=== PATIENT | female | born 1955 | race Caucasian/White ===

== ENCOUNTER → 2023-10-15 09:05 | Outpatient (REF) | payer MEDICARE, OTHER, SELFPAY | LOC: HWWDC 09:05 | PROVIDERS: ATTENDING PHYSICIAN Obstetrics & Gynecology; FAMILY PHYSICIAN Family Medicine | DX: Z12.31 Encounter for screening mammogram for malignant neoplasm of breast (principal) | CPT/HCPCS: 77063; 77067 ==

== ENCOUNTER → 2024-02-06 14:00 | Outpatient (REF) | payer MEDICARE, OTHER, SELFPAY | LOC: HWRAD 14:00 | PROVIDERS: ATTENDING PHYSICIAN Physician Assistant Medical; FAMILY PHYSICIAN Family Medicine | DX: R05.3 Chronic cough (principal) | CPT/HCPCS: 71046 ==

== ENCOUNTER 2024-02-27 07:10 | Emergency (ER) | payer MEDICARE, OTHER, SELFPAY ==
[2024-02-27] VITALS (7 sets, daily range): BP systolic 135–164; BP diastolic 62–87; BMI 23.9
--- NOTE | 2024-02-27 07:58 | ED.GENMED ---
History of Present Illness
General
Chief Complaint: Chest Pain
Source: patient
Exam Limitations: none
Time Seen by Provider: 02/27/24 07:41
History of Present Illness
History of Present Illness:
68-year-old female with history of hypertension presents with onset of chest discomfort this morning. She was laying in bed between 4 AM and 5 AM and developed a pressure on the left side of her chest that radiated into her neck and notes that her
bottom teeth hurt. The pain is not pleuritic. No recent travel. She does not smoke. No significant family history of cardiovascular disease. She is not diabetic. She notes a slight amount of pressure that is persistent at this time. No
abdominal pain. No nausea. She does note she had a COVID-vaccine 4 days ago. She is due to travel to [place] in 2 days.
Past History
Past History
ED Past Medical History: HTN, Hyperthyroidism and Other
ED Past Surgical History:
Social History
Tobacco: Non-smoker
Alcohol: None
Personal:
Living: with family
Employment: Employed
Family History
Family History: Hypertension; Negative CAD or Sudden
Phy Exam
Physical Exam
Physical Exam:
General: Well-appearing female no acute respiratory distress
HEENT: Normocephalic neck is supple
Heart: Regular rate and rhythm no murmurs
Lungs: Clear no wheeze
Extremities: No cyanosis or edema
Skin: Warm no rash abdomen soft nontender nondistended
Scores
Heart Score for Chest Pain Patients
STEMI patient?: No
History: Slightly or Non-Suspicious
ECG: Normal
Age: >/= 65 years
Risk Factors: 1 or 2 Risk Factors
Troponin: </= Normal Limit
Heart Score for Chest Pain Patients: 3
Heart Score Risk: 2.5% MACE over next 6 weeks
Course
Orders/Labs/Results
Orders:
Orders
02/27/24 07:10
Electrocardiogram (*1) Urgent
Reason for Study: Chest Pain
EKG- Treatment ONCE
02/27/24 07:59
Complete Blood Count/With Diff Urgent
Comprehensive Metabolic Panel Urgent
D-Dimer Urgent
Troponin I Urgent
02/27/24 09:27
CT Chest Pe Study Urgent
Comment:
Reason For Exam: chest pain
02/27/24 11:14
Troponin I Urgent
02/27/24 11:19
Electrocardiogram (*1) Urgent
Reason for Study: Chest Pain
EKG- Treatment ONCE
Abnormal Lab Results
02/27/24
07:59
WBC 4.6 L 10^3/uL
(4.8-10.8)
RBC 4.19 L 10^6/uL
(4.20-5.40)
Hgb 11.8 L g/dL
(12.0-16.0)
Hct 35.3 L %
(37.0-47.0)
Absolute Monos (auto) 0.7 H 10^3/uL
(0.1-0.6)
Monocytes % 14.8 H %
(1.7-9.3)
D-Dimer 0.75 H ug/mlFEU
(0.00-0.50)
BUN 22 H mg/dl
(7-17)
02/27/24 07:59
02/27/24 07:59
Vital Signs
Initial and Last Documented VS:
Initial Vital Signs
Temp Pulse Resp BP Pulse Ox
97.9 F 74 18 164/87 99
02/27/24 07:15 02/27/24 07:15 02/27/24 07:15 02/27/24 07:15 02/27/24 07:15
Last Documented Vital Signs
Temp Pulse Resp BP Pulse Ox
97.8 F 66 9 140/71 97
02/27/24 08:01 02/27/24 12:15 02/27/24 12:15 02/27/24 12:00 02/27/24 12:00
MDM/Problems Addressed
Differential Diagnosis Includes:
Chest pain. Consider ACS versus chest wall strain versus pneumothorax versus PE
Patient describes pressure from her chest rating to her jaw. EKG shows sinus rhythm without ischemic changes. Will check troponin and D-dimer. Vital signs currently stable.
Chronic conditions affecting care: HTN
Acute Exacerbation and/or Progression of Chronic Illness:
This is an acute problem
*Critical Care Note
Total Time (30-74mins, 75-104mins- exclusive of procedures): Not Applicable
Update Note
Update Note:
Workup here negative with troponin x 2 undetectable. CTA chest was negative for pulmonary embolism or other chronic lung findings. No signs of ACS currently. Patient notes complete resolution of symptoms. Stable for discharge with follow-up
ED Attending Note
-
Portions of this chart may have been created with voice recognition software.� Occasional wrong word or��sound alike� substitutions may have occurred due to the inherent limitations of voice recognition software.
Discharge Plan
Departure
Patient Disposition: Home (Routine Discharge)
Date of Disposition: 02/27/24
Time of Disposition: 12:29
Patient with high blood pressure during this ER visit?: No
Discharge Problem:
Chest pain
Prescriptions:
No Action
naphazoline-pheniramine [Naphcon-A] 15 ML drops
10 ml OP QID Qty: 1 0RF
lisinopril 5 MG tablet
5 mg PO DAILY Qty: 30 0RF
Referrals:
Guilherme Hawley MD [Active] -
Estuardo Calle MD [Family Provider] -
Activity Restrictions/Additional Instructions:
Please return here for worsening symptoms otherwise follow-up with cardiology
Interventions
Interventions:
*Risk Screen - Suicide Last Done: 02/27/24 07:17
*General Assessment Last Done: 02/27/24 07:17
*Neglect/Abuse Screening Last Done: 02/27/24 07:17
ED- Fall Risk Assessment Last Done: 02/27/24 08:55
*ED COVID-19 Vaccine History Last Done: 02/27/24 08:01
ED- Cardiac Assessment Last Done: 02/27/24 08:55
Discharge Date and Time
Print Language: PERUVIAN
[2024-02-27 08:15] LABS: % Basophils 0.7 % (0-2); % Eosinophils 2.4 % (0-6); % Lymphocytes 32.1 % (20.5-51.1); % Monocytes 14.8 % (1.7-9.3); Absolute Eosinophils 0.1 10^3/uL (0-0.7); Absolute Lymphocytes 1.5 10^3/uL (1.2-3.4); Absolute Monocytes 0.7 10^3/uL (0.1-0.6); Absolute Neutrophils 2.3 10^3/uL (1.4-6.5); Hematocrit 35.3 % (37.0-47.0); Hemoglobin 11.8 g/dL (12.0-16.0); Mean Corp Hgb Conc. 33.4 g/dL (33.0-37.0); Mean Corpuscular Hgb 28.2 pg (27.0-31.0); Mean Corpuscular Volume 84.2 fL (81.0-99.0); Mean Platelet Volume 9.9 fL (7.4-10.4); Nucleated Red Blood Cells % 0 %; Platelet Count 221 10^3/uL (130-400); Red Blood Cell Count 4.19 10^6/uL (4.20-5.40); Red Cell Dist. Width 13.1 % (11.5-14.5); White Blood Cell Count 4.6 10^3/uL (4.8-10.8)
[2024-02-27 08:25] LABS: D-Dimer 0.75 ug/mlFEU (0.00-0.50)
[2024-02-27 08:30] LABS: ALT (SGPT) 25 U/L (0-35); AST (SGOT) 31 U/L (14-36); Albumin 4.2 g/dl (3.5-5.0); Alkaline Phosphatase 62 U/L (38-126); Blood Urea Nitrogen 22 mg/dl (7-17); Calcium 9.3 mg/dl (8.4-10.2); Carbon Dioxide 28 mmol/L (22-30); Chloride 104 mmol/L (98-107); Estimated Creatinine Clearance 75 ml/min; Glucose 96 mg/dl (70-99); Potassium 3.9 mmol/L (3.5-5.1); Sodium 143 mmol/L (135-145); Total Bilirubin 0.5 mg/dl (0.2-1.3); Total Protein 6.7 g/dl (6.3-8.2); eGFR > 60.00
[2024-02-27 09:03] LABS: Troponin I < 0.012 ng/ml
--- NOTE | 2024-02-27 11:16 | EDRN ---
Troponin #2 drawn and sent.
--- NOTE | 2024-02-27 11:49 | EDRN ---
Hector SILVA said okay to feed pt and pt administered cup of water and a boxed lunch.
[2024-02-27 12:00] LABS: Troponin I < 0.012 ng/ml
== END 2024-02-27 12:48 | disposition home or self-care (01) ==
LOC: EMR 07:10
PROVIDERS: Physician Assistant; EMERGENCY PHYSICIAN Emergency Medicine; FAMILY PHYSICIAN Family Medicine
DX: R07.89 Other chest pain (principal); I10 Essential (primary) hypertension
CPT/HCPCS: 99285; 71275; 80053; 84484; 85025; 85379; 93005; Q9967

== ENCOUNTER 2024-04-14 14:23 | Emergency (ER) | payer MEDICARE, OTHER, SELFPAY ==
[2024-04-14 14:26] VITALS: BP 142/78
--- NOTE | 2024-04-14 14:30 | ED.GENMED ---
History of Present Illness
<MAKENZIE Rodríguez Last Filed: 04/14/24 19:12>
General
Chief Complaint: Skin Surface Trauma
Source: patient
Exam Limitations: none
Time Seen by Provider: 04/14/24 14:29
Nursing documentation reviewed up to this point in time: agreed with
History of Present Illness
History of Present Illness:
Patient 68-year-old female past medical history of hyperthyroidism presents to the emergency department today with concerns of laceration above the right eyebrow. Patient reports that she was walking her dog today when she tripped over the leash
and fell forward. She broke her fall with her arms but subsequently hit her face on the concrete pavement. Patient reports that she did not loose consciousness. She denies neck pain, headache, dizziness, lightheadedness, nausea, vomiting. She
does note that she has pressure behind her right eye near the laceration as well as a feeling of fullness on the right side of her face with associated numbness and tingling. The numbness and tingling goes away when she applies pressure to her
nose. Patient denies any nasal pain, denies any nosebleeding. Patient denies any drainage of fluid from her ears. Patient does not take any anticoagulants. Patient denies any wrist pain or upper extremity pain.
Past History
<MAKENZIE Rodríguez Last Filed: 04/14/24 19:12>
Past History
ED Past Medical History: HTN, Hyperthyroidism and Other
ED Past Surgical History:
Social History
Tobacco: Non-smoker
Alcohol: None
Personal:
Living: with family
Employment: Employed
Family History
Family History: Hypertension; Negative CAD or Sudden
Review of Systems
<MAKENZIE Rodríguez Last Filed: 04/14/24 19:12>
Review of Systems
All Other Systems: ROS reviewed and negative except as documented in HPI and ROS
Phy Exam
<Kamille Ambrocio PA-C - Last Filed: 04/14/24 19:12>
Physical Exam
Physical Exam:
General: Patient is well appearing and in no acute distress; non-toxic
Skin: 2.5 cm laceration noted on the right eyebrow, no involvement of the upper palpebra
Head: See laceration note above. No palpable hematomas of the scalp, no tenderness to palpation or palpable bony deformities of the facial bones
Eyes: Sclera non-icteric. EOMs intact.
Cardiac: Regular rate
Peripheral Vascular:
Pulm: Normal respiratory effort
Abdomen: No abdominal tenderness
Musculoskeletal:
Neuro: CN II-XII intact, no focal neurologic deficits.
Psychiatric: Appropriate mood and affect.
Course
<MAKENZIE Rodríguez Last Filed: 04/14/24 19:12>
Orders/Labs/Results
Orders:
Orders
04/14/24 14:52
CT Cervical Spine W/o Iv Contr Urgent
Comment:
Reason For Exam: head trauma
CT Facial Bones W/o Iv Contras Urgent
Comment:
Reason For Exam: facial swelling, pain
CT Head W/o Iv Contrast Urgent
Comment:
Reason For Exam: head trauma
Tetanus/Diphth/Acelpertussis [Adacel] 0.5 ml IM .ONCE ONE
04/14/24 15:01
Lidocaine/Epinephrine/Tetracai [Let Topical Anesthetic Gel] 3 ml .ROUTE .STK-MED ONE
Vital Signs
Initial and Last Documented VS:
Initial Vital Signs
Temp Pulse Resp BP Pulse Ox
97.4 F 68 18 142/78 98
04/14/24 14:26 04/14/24 14:26 04/14/24 14:26 04/14/24 14:26 04/14/24 14:26
Last Documented Vital Signs
Temp Pulse Resp BP Pulse Ox
97.4 F 55 20 170/75 98
04/14/24 14:26 04/14/24 16:47 04/14/24 16:47 04/14/24 16:47 04/14/24 14:26
<Noe Garzon MD - Last Filed: 04/14/24 15:01>
Orders/Labs/Results
Orders:
Orders
04/14/24 14:[address]
CT Cervical Spine W/o Iv Contr Urgent
Comment:
Reason For Exam: head trauma
CT Facial Bones W/o Iv Contras Urgent
Comment:
Reason For Exam: facial swelling, pain
CT Head W/o Iv Contrast Urgent
Comment:
Reason For Exam: head trauma
Tetanus/Diphth/Acelpertussis [Adacel] 0.5 ml IM .ONCE ONE
04/14/24 15:01
Lidocaine/Epinephrine/Tetracai [Let Topical Anesthetic Gel] 3 ml .ROUTE .STK-MED ONE
Vital Signs
Initial and Last Documented VS:
Initial Vital Signs
Temp Pulse Resp BP Pulse Ox
97.4 F 68 18 142/78 98
04/14/24 14:26 04/14/24 14:26 04/14/24 14:26 04/14/24 14:26 04/14/24 14:26
Last Documented Vital Signs
Temp Pulse Resp BP Pulse Ox
97.4 F 55 20 170/75 98
04/14/24 14:26 04/14/24 16:47 04/14/24 16:47 04/14/24 16:47 04/14/24 14:26
Procedures
<Kamille Ambrocio PA-C - Last Filed: 04/14/24 19:12>
Laceration Closure
right eyebrow:
Status of Wound: clean
Size of Wound in cm: 2.5
Description of Wound Edges: sharp
Preparation: cleaned with saline
Anesthesia: 1% Lidocaine with epi and Topical-LET
Revision/Debridement: routine- no revision
Wound exploration: explored to base- no FB
Type of Closure: single layer closure
Skin Closure Material: 5-0 nylon
Number of sutures: 5
<Kamille Ambrocio PA-C - Last Filed: 04/14/24 19:12>
MDM/Problems Addressed
Differential Diagnosis Includes:
ddx include abrasion, laceration, nasal fracture, intracerebral hemorrhage, subdural hematoma, epidural hematoma, orbital fracture
MDM/Problems Addressed:
68-year-old female past medical history of hypothyroidism presents Emergency Department today with concerns of right sided eyebrow laceration and facial pain/swelling following a fall. She was walking her dog when she tripped over to the [employer] and
fell, hitting her face on the pavement. On exam, she is well-appearing, she has no acute distress, no palpable hematomas of the scalp, does have laceration of the right eyebrow. No obvious deformity palpable to the facial bones. Patient feels
like her nose is deviated. Patient's laceration was repaired with sutures, patient tolerated the procedure well. CT scan of the head was negative for any cranial hemorrhage or midline shift, facial bones CT showed no findings to suggest facial
fracture nasal fracture, cervical spine CT negative for fracture. Discussed findings with patient, patient is concerned because she feels like her nose is deviated, I am not able to appreciate this on exam, did advise patient to follow-up with ENT
physician. Return precautions discussed, wound care discussed, patient stable for discharge.
<Kamille Ambrocio PA-C - Last Filed: 04/14/24 19:12>
*Pulse Oximetry
Patient hypoxic: no
*Critical Care Note
Total Time (30-74mins, 75-104mins- exclusive of procedures): Not Applicable
Data Reviewed
Review of Other/Old Records Reveals: Records (Reviewed previous ER physician documentation from 02/27/2024) and Radiology Studies (No previous head or neck CT to review)
Source: patient and records
<Kamille Ambrocio PA-C - Last Filed: 04/14/24 19:12>
Patient Management
Escalation/DeEscalation of care consider admission/obs:
Admit not indicated, patient stable for discharge
ED Attending Note
<Kamille Ambrocio PA-C - Last Filed: 04/14/24 19:12>
-
Portions of this chart may have been created with voice recognition software.� Occasional wrong word or��sound alike� substitutions may have occurred due to the inherent limitations of voice recognition software.
<Noe Garzon MD - Last Filed: 04/14/24 15:01>
ED Attending Note
Patient seen and examined by attending physician: Yes
ED Attending Note:
I have seen and evaluated the patient with a [id number] encounter. I have spoken to the advance practicer provider and involved in the medical history, the physical exam, medical decision making.
Evaluation and management service: agree unless noted differently below.
Results interpretation: agree unless noted differently below.
Focused HPI: 68-year-old female with history as documented presents to the ER for evaluation after mechanical fall. Patient was walking her dog and tripped on the leash and fell forward. Hit the right side of her face and head on the ground. No
loss of consciousness. She did not sustain any other injuries�she says that she caught her fall with her arms partially but did not injure her wrists, elbows, shoulders. No pain in the hips or knees and was able to get up on her own and has been
ambulatory since the fall. She has some fullness/soreness in the right cheek since the fall and has a laceration. Went to see her primary and was referred to the ER for evaluation and treatment. She denies any neck pain or back pain. Denies any
rib pain. She denies any nausea or vomiting. She denies being on any blood thinners. She believes that her tetanus shot is up-to-date.
Physical exam: Awake alert oriented x 3 with a GCS of 15. Vital signs all normal. She has a approximately 2.5 cm linear laceration in the right eyebrow. She has some mild tenderness in the infraorbital region on the right as well as in the right
maxillary region. She has no tenderness along the nasal bridge, no deformity the nasal bone, no septal hematoma or epistaxis noted. She has no tenderness in the cervical spine. No tenderness in the thoracic or lumbar spine. No signs of trauma to
the upper extremities and moving them through full range of motion without pain. She has no tenderness or signs of trauma to the lower extremities and is ambulatory without pain.
Medical Decision Makin-year-old female presents for evaluation after mechanical trip and fall with head strike. Not on blood thinners. Vitals and exam as above. Will check CT head, facial bones, cervical spine. Will repair eyebrow
laceration. Reassess after the above.
Discharge Plan
Departure
Patient Disposition: Home (Routine Discharge)
Date of Disposition: 04/14/24
Time of Disposition: 16:11
Patient with high blood pressure during this ER visit?: Yes
Condition: Good
Discharge Problem:
Eyebrow laceration, Fall
Instructions: Laceration Repair With Stitches (DC), BLOOD PRESSURE, Fall Prevention for Older Adults
Prescriptions:
No Action
naphazoline-pheniramine [Naphcon-A] 15 ML drops
10 ml OP QID Qty: 1 0RF
lisinopril 5 MG tablet
5 mg PO DAILY Qty: 30 0RF
Referrals:
Estuardo Calle MD [Family Provider] -
Activity Restrictions/Additional Instructions:
Your CT scans of the head, facial bones, cervical spine did not show any abnormalities.
Please keep the wound dry for 24 hours, after 24 hours, you can allow mild soapy water to run over the wound. Please do not scrub the wound.
Please report to the emergency department should you experience purulent drainage from the wound, surrounding erythema to the wound, increasing pain, fevers or chills, nausea or vomiting, or any other signs or symptoms concerning to you.
Please follow up with your primary care provider to have the stitches removed in around 5 days.
Interventions
Interventions:
*Risk Screen - Suicide Last Done: 04/14/24 14:26
*General Assessment Last Done: 04/14/24 14:26
*Neglect/Abuse Screening Last Done: 04/14/24 14:26
ED- Fall Risk Assessment Last Done: 04/14/24 14:31
*ED COVID-19 Vaccine History Last Done: 04/14/24 14:31
*Nursing Disposition Last Done: 04/14/24 16:47
ED-Skin Assessment Last Done: 04/14/24 14:31
Discharge Date and Time
Discharge Date/Time: 04/14/24 16:56
Print Language: [id number]
[2024-04-14] MEDS: ADACEL 0.5 ML IM (15:24)
[2024-04-14 16:47] VITALS: BP 170/75
== END 2024-04-14 16:56 | disposition home or self-care (01) ==
LOC: EMR 14:23
PROVIDERS: EMERGENCY PHYSICIAN Emergency Medicine; FAMILY PHYSICIAN Family Medicine
DX: S01.111A Laceration without foreign body of right eyelid and periocular area, initial encounter (principal); W19.XXXA Unspecified fall, initial encounter; Y93.K1 Activity, walking an animal; Z23 Encounter for immunization; I10 Essential (primary) hypertension; E03.9 Hypothyroidism, unspecified; E05.90 Thyrotoxicosis, unspecified without thyrotoxic crisis or storm; Z82.49 Family history of ischemic heart disease and other diseases of the circulatory system
CPT/HCPCS: 99284; 12011; 90471; 70450; 70486; 72125; 90715

== ENCOUNTER → 2024-07-15 12:40 | Outpatient (REF) | payer MEDICARE, OTHER, SELFPAY | LOC: RSP 12:40 | PROVIDERS: ATTENDING PHYSICIAN Family Medicine | DX: J44.9 Chronic obstructive pulmonary disease, unspecified (principal) | CPT/HCPCS: 94727; 94729; 88738; 94010 ==

== ENCOUNTER → 2024-10-25 10:17 | Outpatient (REF) | payer MEDICARE, OTHER, SELFPAY | LOC: HWWDC 10:17 | PROVIDERS: ATTENDING PHYSICIAN Obstetrics & Gynecology; FAMILY PHYSICIAN Family Medicine | DX: Z12.31 Encounter for screening mammogram for malignant neoplasm of breast (principal) | CPT/HCPCS: 77063; 77067 ==

== ENCOUNTER → 2025-03-11 09:21 | Outpatient (REF) | payer MEDICARE, OTHER, SELFPAY | LOC: RAD 09:21 | PROVIDERS: ATTENDING PHYSICIAN Internal Medicine Endocrinology, Diabetes & Metabolism; FAMILY PHYSICIAN Family Medicine | DX: M81.0 Age-related osteoporosis without current pathological fracture (principal) | CPT/HCPCS: 77080 ==

== ENCOUNTER → 2025-04-05 08:52 | Outpatient (REF) | payer MEDICARE, OTHER, SELFPAY | LOC: WDC 08:52 | PROVIDERS: ATTENDING PHYSICIAN Obstetrics & Gynecology; FAMILY PHYSICIAN Family Medicine | DX: R92.2 Inconclusive mammogram (principal); R92.333 Mammographic heterogeneous density, bilateral breasts | CPT/HCPCS: 76641 ==